=== PATIENT | female | born 1945 | race Caucasian/White ===

== ENCOUNTER 2021-10-16 17:50 | Observation (INO) ==
--- NOTE | 2021-10-16 19:42 | Emergency Department Note ---
History of Present Illness General Chief complaint: Weakness Stated complaint: EAR PAIN INTO HEAD Time Seen by Provider: 10/16/21 18:54 History of Present Illness Maximum Pain Intensity: 5 Patient is a 76-year-old female with past medical history significant for hypertension who presents the emergency department accompanied by her daughter for evaluation of weakness over the last 4 days. Patient notes that her primary care provider diagnosed her with hypertension. She was placed on lisinopril 40 mg daily. She took this for about 6 weeks, but did not like the way the medication made her feel. She states she "felt like she wasn't a person." She stopped the medication about 2 weeks ago, and felt great. She was gardening and painting until about 4 days ago. She states that she was seated in the recliner, and was so weak that she could not get out without help from her husba nd. She has been cold and shaky and had no appetite. She was weak and fell getting out of bed a couple of mornings ago. She did not injure herself when she fell. She has also noticed some discomfort at the left ear that radiates toward the top of her head. No skin rashes. She denies any lightheadedness or dizziness. No vision changes. No chest pain no palpitations no shortness of breath. No abdominal pain, no nausea, no vomiting, no urinary symptoms or changes in her stool habits. She did not talk to her primary care provider before stopping the lisinopril. Home Medications Medication Instructions Recorded Confirmed Type lisinopril 40 mg tablet 40 mg PO DAILY #90 tab 08/31/21 10/16/21 Rx Allergies Allergy/AdvReac Type Severity Reaction Status Date / Time No Known Allergies Allergy Verified 10/16/21 20:32 Past Med/Surg History Medical History Bone/cartilage disorder HTN (hypertension), benign Mild malnutrition Vitamin D deficiency Surgical History H/O tubal ligation Hx of breast lump removal Family History Mother Diabetes Father Hypertension Myocardial infarction Denies family history of Ovarian cancer Prostate cancer Breast cancer Colorectal cancer Social History (Reviewed 10/16/21 @ 19:41 by Dann Mahmood Smoking Status: Never smoker Second Hand Exposure: No; Hx Alcohol Use: No (social and rare ) Hx Substance Use: No marital status: Current Living Situation: Spouse current occupational status: retired Feels Safe at Home: Yes caffeine: Yes (coffee) Dental Care, Regularly: Yes Physical Activity Frequency: Daily Physical Activity Frequency Comment: walking 3-4 miles daily. Seatbelt Use: always Sunscreen Use: No Review of Systems A total of 10 systems reviewed and were otherwise negative Physical Exam Vital Signs Vital Signs - 24 hr 10/16/21 17:55 10/16/21 19:30 10/16/21 21:00 Temperature 36.4 C L Temperature Source Temporal Artery Scan Pulse Rate 94 H 89 Pulse Rate [Apical] 89 77 Respiratory Rate 18 20 18 Blood Pressure 190/77 H Blood Pressure [Right Arm] 182/99 H 137/93 Blood Pressure Mean 114 Blood Pressure Mean [Right Arm] 126 107 Pulse Oximetry 96 97 98 Oxygen Delivery Method Room Air Room Air Sepsis Recent Fever Within 48 Hours No Sepsis New/Unexplained Change in Mental Status No Sepsis Action Taken by Nursing No Action Required Pulse Oximetry Post Tiitration 97 CONSTITUTIONAL: Well-appearing 76-year-old female who is awake and alert and laying on the gurney. EYES: Pupils equal, round, reactive to light and accommodation. EOMs intact without nystagmus. Sclera are anicteric. ENT: Tympanic membranes intact, with normal landmarks. External canals are clear. Oral and nasopharynx are clear. Mucous membranes are moist, no lesions, tongue and gums appear normal. No abnormalities of the left external ear structure or canal. No pain swelling or erythema over the mastoid. No rashes noted. CARDIOVASCULAR: Regular rate and rhythm, with normal S1 and S2, no murmur or gallop or rub is heard. Peripheral pulses easy to palpable. RESPIRATORY: Breath sounds equal and clear to auscultation without wheezes, rales, or rhonchi heard. Full and equal chest expansion without accessory muscle use or retractions. GI: Bowel sounds are present. Abdomen is soft, nontender, nondistended. No or ganomegaly. No pulsatile masses. No guarding or rebound. MUSCULOSKELETAL: Full range of motion of extremities x 4 with good strength. No cyanosis, edema, joint tenderness or swelling. No deformity. INTEGUMENTARY: No lesions or rash, normal skin turgor. NEUROLOGICAL: Alert, oriented, and cooperative. Cranial nerves 2 through 12 sensation and strength grossly intact. Upper and lower extremity DTRs are equal and symmetrical bilaterally. Negative seated pronator drift. [id number] is intact. LYMPH: No lymphadenopathy. Course Course The patient was seen and assessed as above. She presents the emergency departm ent for evaluation of generalized weakness, she does also endorse some left- sided ear pain and a headache. She was noted to be quite hypertensive in triage. She was placed in room D6. She was seen and evaluated by myself. EKG was performed and is as noted below. Chest x-ray and head CT were ordered. CBC with differential, CMP, troponin and urinalysis were obtained. She was observed on the compliance monitor. Laboratory studies note a leukopenia, white count 3900. She is not anemic. Thrombocytopenia noted with a platelet count of 90,000. Sodium low at 129, potassium 3.8, chloride 95, carbon oxide 24, BUN and creatinine elevated from baseline at 29 and 1.5 respectively. She has slight elevation of her AST and ALT at 84 and 68 respectively. High-sensitivity troponin x1 is slightly e levated at 15.9. Urine microscopy is a contaminated sample was greater than 30 epithelial cells, leukocyte esterase and WBCs noted, no bacteria. A urine culture is pending. Head CT was negative for any acute intracranial process. Chest x-ray notes cardiomegaly with no active disease. EKG is without acute ischemic changes. Blood pressure remained elevated in the emergency department, in the [id number] over 90s. Cardiac monitoring: An order was placed for continuous cardiac monitoring. The monitor shows a normal sinus rhythm in the 80s. Laboratory and diagnostic imaging studies were reviewed with attending physician, and discussed with the patient and her daughter. She has multiple d iagnostic testing abnormalities that require further work-up in the hospital, and is agreeable. [facility] Please refer to their H&P and admission orders for further information. Medical Decision Making Differential Diagnosis Differential diagnoses included : infection, dehydration, metabolic abnormality, hypo/hyperglycemia, electrolyte disturbance, anemia, hypoxia, cardiac sources, intracerebral event, toxicologic, neurologic, as well as other pathologies. Medical Records Attestation: I reviewed the patient's medical records. Home Medications Current Medication List: was personally reviewed by me Laboratory Data Attestation: I reviewed the patient's lab results. Result diagrams: 10/16/21 19:07 10/16/21 19:07 Lab Results 10/16/21 10/16/21 10/16/21 Range/Units 19:07 19:07 20:02 WBC 3.94 L (4.8-10.8) K/uL RBC 4.65 (4.2-5.4) M/uL Hgb 14.3 (12.0-16.0) g/dL Hct 40.6 (37-47) % MCV 87.3 (80-100) fL MCH 30.8 (25-34) pg MCHC 35.2 (32-36) g/dL RDW Std Deviation 44.7 (36.4-46.3) fL RDW Coeff of Kalina 13.9 (11.5-14.5) % Plt Count 90 L (130-400) K/uL MPV 11.4 H (7.4-10.4) fL Immature Gran % (Auto) 0.8 % Neut % (Auto) 70.7 % Lymph % (Auto) 16.0 % Ector % (Auto) 11.4 % Eos % (Auto) 0.3 % Baso % (Auto) 0.8 % Neut # (Auto) 2.79 (1.4-6.5) K/uL Lymph # (Auto) 0.63 L (1.2-3.4) K/uL Ector # (Auto) 0.45 (0.11-0.59) K/uL Eos # (Auto) 0.01 (0-0.5) K/uL Baso # (Auto) 0.03 (0-0.2) K/uL Immature Gran # (Auto) 0.03 H (0.00-0.02) K/uL Platelet Estimate Decreased L (Normal) RBC Morphology Unremarkable Sodium 129 L (136-145) mmol/L Potassium 3.8 (3.5-5.1) mmol/L Chloride 95 L (98-107) mmol/L Carbon Dioxide 24 (21-32) mmol/L Anion Gap 10 (3-11) BUN 29 H (6-23) mg/dl Creatinine 1.53 H (0.6-1.2) mg/dl Est Cr Clr Drug Dosing 27.5 ml/min Est GFR ( Amer) 37.4 ml/min Est GFR (Non-Af Amer) 32.2 ml/min BUN/Creatinine Ratio 19.0 (10-20) Glucose 106 H (70-99(Fasting)) mg/dl Calcium 8.8 (8.5-10.1) mg/dl Total Bilirubin 0.6 (0.2-1.0) mg/dl AST 84 H (13-39) U/L ALT 68 H (7-52) U/L Alkaline Phosphatase 85 (34-104) U/L Troponin I High Sens 15.9 H (0-14) pg/ml Total Protein 7.2 (6.0-8.3) gm/dl Albumin 4.0 (3.4-5.0) gm/dl Globulin 3.2 (2.5-4.0) gm/dl Albumin/Globulin Ratio 1.3 (0.9-2) Urine Color Urine Appearance (Clear) Urine pH (4.5-7.5) Ur Specific [place] (1.000-1.030) Urine Protein (Negative) Urine Glucose (UA) (Negative) Urine Ketones (Negative) Urine Blood (Negative) Urine Nitrite (Negative) Urine Bilirubin (Negative) Urine Urobilinogen (Negative) Ur Leukocyte Esterase (Negative) Urine WBC (Auto) (0-5) /hpf Urine RBC (Auto) (0-4) /hpf U Hyaline Cast (Auto) (0-5) /lpf U Epithel Cells (Auto) (0-5) /lpf Urine Bacteria (Auto) (Negative) SARS-CoV-2, RNA, NAAT NEGATIVE (NEGATIVE) 10/16/21 Range/Units 20:13 WBC (4.8-10.8) K/uL RBC (4.2-5.4) M/uL Hgb (12.0-16.0) g/dL Hct (37-47) % MCV (80-100) fL MCH (25-34) pg MCHC (32-36) g/dL RDW Std Deviation (36.4-46.3) fL RDW Coeff of Kalina (11.5-14.5) % Plt Count (130-400) K/uL MPV (7.4-10.4) fL Immature Gran % (Auto) % Neut % (Auto) % Lymph % (Auto) % Ector % (Auto) % Eos % (Auto) % Baso % (Auto) % Neut # (Auto) (1.4-6.5) K/uL Lymph # (Auto) (1.2-3.4) K/uL Ector # (Auto) (0.11-0.59) K/uL Eos # (Auto) (0-0.5) K/uL Baso # (Auto) (0-0.2) K/uL Immature Gran # (Auto) (0.00-0.02) K/uL Platelet Estimate (Normal) RBC Morphology Sodium (136-145) mmol/L Potassium (3.5-5.1) mmol/L Chloride (98-107) mmol/L Carbon Dioxide (21-32) mmol/L Anion Gap (3-11) BUN (6-23) mg/dl Creatinine (0.6-1.2) mg/dl Est Cr Clr Drug Dosing ml/min Est GFR ( Amer) ml/min Est GFR (Non-Af Amer) ml/min BUN/Creatinine Ratio (10-20) Glucose (70-99(Fasting)) mg/dl Calcium (8.5-10.1) mg/dl Total Bilirubin (0.2-1.0) mg/dl AST (13-39) U/L ALT (7-52) U/L Alkaline Phosphatase (34-104) U/L Troponin I High Sens (0-14) pg/ml Total Protein (6.0-8.3) gm/dl Albumin (3.4-5.0) gm/dl Globulin (2.5-4.0) gm/dl Albumin/Globulin Ratio (0.9-2) Urine Color Yellow Urine Appearance Clear (Clear) Urine pH 6.0 (4.5-7.5) Ur Specific [place] 1.012 (1.000-1.030) Urine Protein 2+ H (Negative) Urine Glucose (UA) Negative (Negative) Urine Ketones Negative (Negative) Urine Blood Trace H (Negative) Urine Nitrite Negative (Negative) Urine Bilirubin Negative (Negative) Urine Urobilinogen Negative (Negative) Ur Leukocyte Esterase 1+ H (Negative) Urine WBC (Auto) >30 H (0-5) /hpf Urine RBC (Auto) 0-4 (0-4) /hpf U Hyaline Cast (Auto) 1-5 (0-5) /lpf U Epithel Cells (Auto) >30 H (0-5) /lpf Urine Bacteria (Auto) Negative (Negative) SARS-CoV-2, RNA, NAAT (NEGATIVE) Imaging Data Attestation: I personally reviewed and interpreted this imaging study as follows: Radiologist's Impression: Chest X-Ray 10/16/21 19:10 SINGLE VIEW CHEST CLINICAL HISTORY: Hypertension. FINDINGS: An AP, portable, upright chest radiograph is obtained. No prior studies are available for comparison at the time of dictation. The heart is enlarged. The pulmonary vasculature is noncongested. There is mild bibasilar scarring/atelectasis. The lungs and pleural spaces are otherwise clear. No pneumothorax is seen. The skeletal structures are osteopenic. The bony thorax is grossly intact. IMPRESSION: Cardiomegaly with no active disease in the chest. ACT 112: Negative or not required by law. Electronically signed by: Geo Childs M.D. 10/16/2021 8:[address] 10/16/21 19:10 CT SCAN OF THE BRAIN WITHOUT IV CONTRAST CLINICAL HISTORY: Hypertension. COMPARISON STUDY: No priors. TECHNIQUE: Unenhanced axial CT scan of the brain is performed from the vertex to the skull base. A dose lowering technique was utilized adhering to the principles of ALARA. CT DOSE: 537.48 mGy.cm FINDINGS: Brain parenchyma: There is age-related involutional change noting mild subcortical and periventricular microangiopathic disease. There is no hemorrhage, mass effect, or evidence of acute territorial ischemia by CT criteria. Roberts-white matter differentiation is preserved. No extra-axial fluid collection is seen. Ventricles, sulci, cisterns: Prominent secondary to involutional change. Intracranial vasculature: There is atherosclerotic calcification of the cavernous carotid and vertebral arteries. Calvarium: Unremarkable. Sinuses and mastoids: The visualized paranasal sinuses are clear. The mastoid air cells are well pneumatized. Orbits: The bony orbits are grossly intact. IMPRESSION: There is no hemorrhage, mass effect, or evidence of acute territorial ischemia by CT criteria. ACT 112: Negative or not required by law. Electronically signed by: Geo Childs M.D. 10/16/2021 7:49 PM ECG Data Attestation: I personally reviewed and interpreted this ECG as follows: Indication: + weakness Rate (beats per minute): 92 Rhythm: + normal sinus ECG [place]: + Normal ECG ST segments: + Normal ST segments Comparison ECG Date: no prior available Blood Pressure Blood Pressure Findings: Elevated blood pressure Blood Pressure Disposition: further management by hospitalist MDM Narrative See ED Course. Impression & Plan Weakness, Hyponatremia, KALEB (acute kidney injury), Thrombocytopenia Discharge Plan Visit Data Chief Complaint: Weakness Stated Complaint: EAR PAIN INTO HEAD ED Provider: Yeyo Dupree ED Midlevel Provider: Dann Veliz Discharge Problem: Weakness, Hyponatremia, KALEB (acute kidney injury), Thrombocytopenia Patient Disposition: Being Evaluated by Hospitalist Forms Stand Alone Forms: My [facility] Prescriptions Prescriptions: No Action lisinopril 40 mg tablet 40 mg PO DAILY Qty: 90 RF: 1 Referrals Referrals: Christina Spann MD [Primary Care Provider] -
--- NOTE | 2021-10-16 19:51 | CT Scan Report ---
CT SCAN OF THE BRAIN WITHOUT IV CONTRAST CLINICAL HISTORY: Hypertension. COMPARISON STUDY: No priors. TECHNIQUE: Unenhanced axial CT scan of the brain is performed from the vertex to the skull base. A do se lowering technique was utilized adhering to the principles of ALARA. CT DOSE: 537.48 mGy.cm FINDINGS: Brain parenchyma: There is age-related involutional change noting mild subcortical and periventricula r microangiopathic disease. There is no hemorrhage, mass effect, or evidence of acute territorial isc hemia by CT criteria. Roberts-white matter differentiation is preserved. No extra-axial fluid collection is seen. Ventricles, sulci, cisterns: Prominent secondary to involutional change. Intracranial vasculature: There is atherosclerotic calcification of the cavernous carotid and vertebr al arteries. Calvarium: Unremarkable. Sinuses and mastoids: The visualized paranasal sinuses are clear. The mastoid air cells are well pneu matized. Orbits: The bony orbits are grossly intact. IMPRESSION: There is no hemorrhage, mass effect, or evidence of acute territorial ischemia by CT savanah gallardo. ACT 112: Negative or not required by law. Electronically signed by: Geo Childs M.D. 10/16/2021 7:49 PM
[2021-10-16 19:57] LABS: Hematocrit (blood only) 40.6 % (37-47); Hemoglobin 14.3 g/dL (12.0-16.0); Mean Corpuscular Hemoglobin 30.8 pg (25-34); Mean Corpuscular Hgb Conc 35.2 g/dL (32-36); Mean Corpuscular Volume 87.3 fL (80-100); RDW Coefficient of Variation 13.9 % (11.5-14.5); RDW Standard Deviation 44.7 fL (36.4-46.3); Red Blood Count 4.65 M/uL (4.2-5.4); White Blood Count 3.94 K/uL (4.8-10.8)
[2021-10-16 20:00] LABS: Basophils # (auto) 0.03 K/uL (0-0.2); Basophils % (auto) 0.8 %; Eosinophils # (auto) 0.01 K/uL (0-0.5); Eosinophils % (auto) 0.3 %; Immature Granulocytes # (auto) 0.03 K/uL (0.00-0.02); Immature Granulocytes % (auto) 0.8 %; Lymphocytes # (auto) 0.63 K/uL (1.2-3.4); Mean Platelet Volume 11.4 fL (7.4-10.4); Monocytes # (auto) 0.45 K/uL (0.11-0.59); Monocytes % (auto) 11.4 %; Neutrophils # (auto) 2.79 K/uL (1.4-6.5); Neutrophils % (auto) 70.7 %; Platelet Count 90 K/uL (130-400); Platelet Estimate Decreased (Normal); RBC Morphology Unremarkable
[2021-10-16 20:03] LABS: Albumin Globulin Ratio 1.3 (0.9-2); Bilirubin,Total 0.6 mg/dl (0.2-1.0); Calcium 8.8 mg/dl (8.5-10.1); Creatinine Clr Calc Pharmacy 27.5 ml/min; Est GFR (African American) 37.4 ml/min; Est GFR (Non-African American) 32.2 ml/min; Globulin 3.2 gm/dl (2.5-4.0); Potassium 3.8 mmol/L (3.5-5.1); Total Protein 7.2 gm/dl (6.0-8.3)
[2021-10-16 20:05] LABS: Troponin I High Sensitivity 15.9 pg/ml (0-14)
[2021-10-16 20:33] LABS: Appearance Urine Clear (Clear); Bacteria Urine Automated Negative (Negative); Bilirubin Urine Negative (Negative); Blood Urine Trace (Negative); Color Urine Yellow; Epithelial Cell Urine Auto >30 /lpf (0-5); Glucose Urine UA Negative (Negative); Ketones Urine Negative (Negative); Leukocyte Esterase Urine 1+ (Negative); Nitrite Urine Negative (Negative); Protein Urine 2+ (Negative); RBC Urine Automated 0-4 /hpf (0-4); Specific Gravity Urine 1.012 (1.000-1.030); Urobilinogen Urine Negative (Negative); WBC Urine Automated >30 /hpf (0-5)
--- NOTE | 2021-10-16 20:55 | XRay Report ---
SINGLE VIEW CHEST CLINICAL HISTORY: Hypertension. FINDINGS: An AP, portable, upright chest radiograph is obtained. No prior studies are available for c omparison at the time of dictation. The heart is enlarged. The pulmonary vasculature is noncongested . There is mild bibasilar scarring/atelectasis. The lungs and pleural spaces are otherwise clear. No pneumothorax is seen. The skeletal structures are osteopenic. The bony thorax is grossly intact. IMPRESSION: Cardiomegaly with no active disease in the chest. ACT 112: Negative or not required by law. Electronically signed by: Geo Childs M.D. 10/16/2021 8:54 PM
[2021-10-16] MEDS ORDERED: LACTATED RINGER'S 1,000 ML IV ONE (20:56)
[2021-10-16] MEDS ORDERED: DOXYCYCLINE HYCLATE 100 MG in DEXTROSE 5% 100 ML IV STA (21:36)
[2021-10-16 22:12] LABS: Lyme Ab IgG w/WB Rflx Negative (Negative); Lyme Ab IgM w/WB Rflx Negative (Negative)
--- NOTE | 2021-10-16 22:13 | History & Physical Report ---
Date of Service October 16, 2021 Assessment & Plan (1) Leukopenia: Plan: Leukopenia with thrombocytopenia in the setting of normal HGB/HCT with elevated liver enzymes DDX: Tick borne disease vs. bacterial/viral infection vs. ocnological vs. other - Likely tickborne disease- send anaplasmosis and lyme - start on Doxycycline 100mg IV now and then q12 - Follow WBC and Platelet count if no improvement in symptoms/labs within 24-48 hours send peripheral smear - Follow HGB as likely some hemoconcentration with hypovolemia (2) Thrombocytopenia: Plan: As above (3) KALEB (acute kidney injury): Plan: Baseline PROCESS SAFETY SPECIALIST 0.8- CATHY III - Replete with LR overnight at 100ml/hour - follow renal function - adjust or change lovenox for DVT prophy if needed- this should trend downward - Urine protein 2+ with trace blood - Hold WILLIAM inhibitor (4) Hyponatremia: Plan: As above likely related to decrease solute intake with continued water intake but both have been low serum and urine osmo pending; urine sodium pending (5) HTN (hypertension), benign: Plan: Previously started on Lisinopril in Jun 26 - has had low blood pressures and self stopped - 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 or 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 Patient comes in to the EMD today for 3-4 day history of fatigue and general weakness. Patient states that she started feeling like this approx towards the end of last week. This was acute onset in nature. It is associated with decrease in appetite and chills. She has not taken any medication for this. Patient originally thought this was rebound from her stopping her blood pressure medications. She was previously on Lisinopril 40mg daily for SBP that she reports were up in the 190s back in Jun, that was associated with headaches. She was originally started on 20mg at that time and her headaches improved, but remained elevated. Following the increase to 40mg daily, she noted that on home checks she would be 120 or lower in the 90s systolic. She also fell dizzy and "spacy" so she stopped this about 2 weeks ago. In the EMD the patient had routine labs performed and had a head CT scan performed. Her head CT was negative for acute process. Her labs were remarkable for neutropenia, thrombocytopenia with normal HGB/HCT; her BMP was notable for hyponatremia, elevated LFTs with normal biliary pattern and KALEB. She is up to date with her mammograms, Cologuard screening done last year. Patient states that she was out gardening last week by the [employer] as well as [employer]. She also has dogs which she has seen ticks on and they sleep in bed with her. She has had decrease appetite and decrease oral fluid intake. HScTNI was mildly elevated at 15 on arrival with no complaints of chest pain. Overall labs and symptoms appear likely to be tick borne disease. Will send tick borne labs for anaplasmosis and lyme disease. Will start on Doxycycline and LR overnight. COVID test on admission is: NEGATIVE Allergies Allergy/AdvReac Type Severity Reaction Status Date / Time No Known Allergies Allergy Verified 10/16/21 20:32 Home Medications Medication Instructions Recorded Confirmed Type lisinopril 40 mg tablet 40 mg PO DAILY #90 tab 08/31/21 10/16/21 Rx Past Med/Surg History Medical History Bone/cartilage disorder Breast cancer HTN (hypertension), benign Mild malnutrition Vitamin D deficiency Surgical History H/O tubal ligation Hx of breast lump removal Family History Mother Diabetes Father Hypertension Myocardial infarction Denies family history of Ovarian cancer Prostate cancer Breast cancer Colorectal cancer Social History Smoking Status: Never smoker Second Hand Exposure: No; Hx Alcohol Use: No (social and rare ) Hx Substance Use: No Preferred Language: Upper Sorbian Communication Ability: Effective Shiftman Required: No Beliefs That Will Affect Care: None marital status: Current Living Situation: Spouse current occupational status: retired Feels Safe at Home: Yes Safety Concerns: Feels Safe At This Time caffeine: Yes (coffee) Dental Care, Regularly: Yes Physical Activity Frequency: Daily Physical Activity Frequency Comment: walking 3-4 miles daily. Seatbelt Use: always Sunscreen Use: No Assistive Devices: None Review of Systems Review of Systems: REVIEW OF SYSTEMS: Constitutional: (+) chills, No fever, Eyes: No diplopia, no worsening or blurred vision ENT: normal hearing, no trouble swallowing Respiratory: No cough, sputum, dyspnea at rest or on exertion Cardiovascular: No chest pain, tightness or palpitations Abdomen: (+) loss of appetite, No pain, nausea, vomiting, diarrhea or constipation Musculoskeletal: (+) joint pain, calf pain, swelling Neurologic: (+) generalized weakness, NO numbness/tingling, or balance problems Psychiatric: No anxiety or depression Skin: No rash or itch Physical Exam Physical Exam: PHYSICAL EXAM: General: awake, alert, no apparent distress Head: Normocephalic, atraumatic ENT: PERRLA, EOMI, no pharyngeal exudate, mucous membranes dry Neuro: AAO x 3, speech clear and appropriate, strength intact bilaterally 5/5, sensation intact and equal all extremities and dermatomes, no pronator drift Chest: equal rise and fall of the chest, no accessory muscle use, no heaves or thrills, Clear to auscultation, on room air, Cardiac: Regular rate and rhythm, telemetry reviewed, skin warm dry, cap refill <3 seconds, peripheral pulses +2 no JVD, no murmur, no JVD, no edema GI: NABS x 4 quadrants, soft, nontender to palpation, no rebound, guarding or tenderness : Spontaneously voiding, no pain, no CVA tenderness, Extremities: Normal inspection, no peripheral edema or erythema, calfs nontender to palpation Psych: Normal mood and affect Skin: varicosities, no rash or erythema Results & Data Results & Data ([facility]) Vital Signs (Past 12 Hours) Vital Signs Temp Pulse Pulse Resp BP BP Pulse Ox 10/16/21 21:00 77 18 137/93 98 10/16/21 19:30 89 89 20 182/99 H 97 10/16/21 17:55 36.4 C L 94 H 18 190/77 H 96 Laboratory Results Abnormal lab results 10/16/21 10/16/21 10/16/21 Range/Units 19:07 19:07 20:13 WBC 3.94 L (4.8-10.8) K/uL Plt Count 90 L (130-400) K/uL MPV 11.4 H (7.4-10.4) fL Lymph # (Auto) 0.63 L (1.2-3.4) K/uL Immature Gran # (Auto) 0.03 H (0.00-0.02) K/uL Platelet Estimate Decreased L (Normal) Sodium 129 L (136-145) mmol/L Chloride 95 L (98-107) mmol/L BUN 29 H (6-23) mg/dl Creatinine 1.53 H (0.6-1.2) mg/dl Glucose 106 H (70-99(Fasting)) mg/dl AST 84 H (13-39) U/L ALT 68 H (7-52) U/L Troponin I High Sens 15.9 H (0-14) pg/ml C-Reactive Protein (0-0.5) mg/dl Urine Protein 2+ H (Negative) Urine Blood Trace H (Negative) Ur Leukocyte Esterase 1+ H (Negative) Urine WBC (Auto) >30 H (0-5) /hpf U Epithel Cells (Auto) >30 H (0-5) /lpf 10/16/21 10/16/21 Range/Units 21:20 21:20 WBC (4.8-10.8) K/uL Plt Count (130-400) K/uL MPV (7.4-10.4) fL Lymph # (Auto) (1.2-3.4) K/uL Immature Gran # (Auto) (0.00-0.02) K/uL Platelet Estimate (Normal) Sodium (136-145) mmol/L Chloride (98-107) mmol/L BUN (6-23) mg/dl Creatinine (0.6-1.2) mg/dl Glucose (70-99(Fasting)) mg/dl AST (13-39) U/L ALT (7-52) U/L Troponin I High Sens 17.6 H (0-14) pg/ml C-Reactive Protein 12.02 H (0-0.5) mg/dl Urine Protein (Negative) Urine Blood (Negative) Ur Leukocyte Esterase (Negative) Urine WBC (Auto) (0-5) /hpf U Epithel Cells (Auto) (0-5) /lpf Diagnostic Findings Chest X-Ray 10/16/21 19:10 SINGLE VIEW CHEST CLINICAL HISTORY: Hypertension. FINDINGS: An AP, portable, upright chest radiograph is obtained. No prior studies are available for comparison at the time of dictation. The heart is enlarged. The pulmonary vasculature is noncongested. There is mild bibasilar scarring/atelectasis. The lungs and pleural spaces are otherwise clear. No p neumothorax is seen. The skeletal structures are osteopenic. The bony thorax is grossly intact. IMPRESSION: Cardiomegaly with no active disease in the chest. ACT 112: Negative or not required by law. Electronically signed by: Geo Childs M.D. 10/16/2021 8:[address] 10/16/21 19:10 CT SCAN OF THE BRAIN WITHOUT IV CONTRAST CLINICAL HISTORY: Hypertension. COMPARISON STUDY: No priors. TECHNIQUE: Unenhanced axial CT scan of the brain is performed from the vertex to the skull base. A dose lowering technique was utilized adhering to the principles of ALARA. CT DOSE: 537.48 mGy.cm FINDINGS: Brain parenchyma: There is age-related involutional change noting mild subcortical and periventricular microangiopathic disease. There is no hemorrhage, mass effect, or evidence of acute territorial ischemia by CT criteria. Roberts-white matter differentiation is preserved. No extra-axial fluid collection is seen. Ventricles, sulci, cisterns: Prominent secondary to involutional change. Intracranial vasculature: There is atherosclerotic calcification of the cavernous carotid and vertebral arteries. Calvarium: Unremarkable. Sinuses and mastoids: The visualized paranasal sinuses are clear. The mastoid air cells are well pneumatized. Orbits: The bony orbits are grossly intact. IMPRESSION: There is no hemorrhage, mass effect, or evidence of acute territorial ischemia by CT criteria. ACT 112: Negative or not required by law. Electronically signed by: Geo Childs M.D. 10/16/2021 7:49 PM Medications Administered Home Medications lisinopril 40 mg tablet 40 mg PO DAILY #90 tab 08/31/21 [Rx Confirmed 10/16/21] Active Medications Lactated Ringer's (Lr) 1,000 mls @ 100 mls/hr IV .Q10H ONE Stop: 10/17/21 06:55 Doxycycline Hyclate 100 mg/ (Dextrose) 110 mls @ 50 mls/hr IV NOW STA Stop: 10/16/21 23:47 ECG Additional Comments: Normal sinus rhythm Inferior infarct , age undetermined Abnormal ECG No previous ECGs available Code Status & VTE Plan Code Status CODE: FULL VTE: SCDs, Lovenox 40mg sub q daily VTE Prophylaxis Plan VTE Prophylaxis will be ordered: Yes Supervising Physician Co-Signing Physician Notes Patient seen and examined, chart reviewed, case discussed with PEPPER Hendrix and I agree with the assessment and plan as above. Patient with generalized illness. Labs with hyponatremia, leukopenia, thrombocytopenia and mild elevation of AST/ALT as well as troponin ?Viral illness vs tick borne illness Unremarkable exam - patient AA&O, NAD Neck supple slightly dry MM +S1/S2, regular, no m/r/g Lungs CTA Abd soft, NT/ND Ext warm, well perfused Labs and images reviewed Assessment/Plan -Monitor labs -Empiric Doxycycline - awaiting tick borne illness results -Gentle IVF for correction of hypovolemic hyponatremia -Remainder as above PG Care Time/CCT Total # of Minutes Spent Total Time Spent with Patient: Total time spent is greater than 50% in coordination of care (as documented) at patient's floor/unit and/or counseling patient: Coding Level of Care Code 22201 Initial Inpt Care Lvl 3 Diagnoses Leukopenia D72.819 Thrombocytopenia D69.6 KALEB (acute kidney injury) N17.9 Hyponatremia E87.1 HTN (hypertension), benign I10 History of breast cancer Z85.3 Elevated troponin I level R77.8
[2021-10-16] MEDS ORDERED: ENOXAPARIN INJ 30 MG/0.3 ML SYR SQ SCH (22:35)
[2021-10-17 03:55] LABS: Hematocrit (blood only) 39.5 % (37-47); Hemoglobin 13.2 g/dL (12.0-16.0); Mean Corpuscular Hgb Conc 33.4 g/dL (32-36); Mean Corpuscular Volume 86.8 fL (80-100); RDW Standard Deviation 44.2 fL (36.4-46.3); Red Blood Count 4.55 M/uL (4.2-5.4); White Blood Count 3.62 K/uL (4.8-10.8)
[2021-10-17 03:58] LABS: Mean Platelet Volume 11.7 fL (7.4-10.4); Platelet Count 87 K/uL (130-400)
[2021-10-17 04:16] LABS: Basophils # (auto) 0.02 K/uL (0-0.2); Basophils % (auto) 0.6 %; Eosinophils # (auto) 0.01 K/uL (0-0.5); Eosinophils % (auto) 0.3 %; Immature Granulocytes # (auto) 0.01 K/uL (0.00-0.02); Immature Granulocytes % (auto) 0.3 %; Lymphocytes % (auto) 24.9 %; Monocytes # (auto) 0.54 K/uL (0.11-0.59); Monocytes % (auto) 14.9 %; Neutrophils # (auto) 2.14 K/uL (1.4-6.5)
[2021-10-17 04:23] LABS: BUN Creatinine Ratio 18.4 (10-20); Calcium 8.7 mg/dl (8.5-10.1); Creatinine Clr Calc Pharmacy 33.6 ml/min; Est GFR (African American) 47.7 ml/min; Est GFR (Non-African American) 41.2 ml/min; Magnesium 1.8 mg/dl (1.7-2.4); Potassium 3.8 mmol/L (3.5-5.1)
[2021-10-17 04:24] LABS: Troponin I High Sensitivity 16.4 pg/ml (0-14)
[2021-10-17 08:28] LABS: Albumin Level 3.3 gm/dl (3.4-5.0); Bilirubin,Total 0.5 mg/dl (0.2-1.0); Total Protein 6.1 gm/dl (6.0-8.3)
--- NOTE | 2021-10-17 10:36 | Hospitalist Progress Note ---
Date of Service October 17, 2021 Assessment & Plan (1) Weakness: Plan: Patient is a 76 year old female with PMH of HTN and breast cancer in remission presenting with 4 days of weakness and headache with decreased PO intake. Weakness -hyponatremia vs tick born illness vs bacteremia vs viral infection -CT head without evidence of ischemia, hemorrhage or masses -PT/OT eval Leukopenia and thrombocytopenia -tick born illness vs bacteremia vs viral infection -WBC 3.62, Plt 87, -with mildly elevated procalcitonin at 0.67 -anaplasma, babesia, lyme screen negative; confirmatory anaplasma and babesia pending -covid negative -peripheral smear: decreased numbers of lymphocytes with scattered reactive lymphocytes, increased band forms. Blasts and schistocytes not seen, no inclusions of anaplasmosis or ehrlichiosis -blood and urine culture pending, drawn 10/17 AM after initiation of doxycycline 10/16 PM -started on Doxycycline 100mg IV in ED, continue KALEB -dehydration vs hypertensive emergency vs tick borne, likely dehydration with Cr improving with fluids -baseline at 0.81, 1.53 on admission ->1.25 on 10/17 -2+ protein on UA -on LR 110mg/hr Hypertension -on admission, BP 190/77 with headache -currently untreated -was trialed on lisinopril 40mg in July but patient stopped med without consulting PCP after 6 weeks due to lightheadedness -consider re-trial of antihypertensive at lower dose on discharge Hyponatremia, resolving -hypovolemic hyponatremia, resolving with LR 110mg/hr -poor PO intake prior to admission, low osmolality at 277 -129 on admission -> 134 on 10/17 Transaminitis, resolving -possibly due to tick born illness -AST 84 on admission -> 47 on 10/17, ALT 68 -> 49 on 10/17 Elevated troponin -no chest pain or SOB -high sensitivity troponin on admission 17.6 -> 16.4 on 10/17 DVT prophylaxis: lovenox FEN/GI: regular diet Code Status: Full code (2) Leukopenia: (3) Thrombocytopenia: (4) Hyponatremia: (5) KALEB (acute kidney injury): (6) HTN (hypertension), benign: (7) Elevated troponin I level: Admission and Anticipated Discharge Date Admission Date: October 16, 2021 Supervising Physician Co-Signing Physician Notes Attending attestation Pt seen and examined in concert with [facility]. Dr. Bebo Lamar. In agreement with the documented findings as noted in the resident documentation with any exceptions or additions as noted here. Pt reports continued general malaise, "not feeling myself" but reports no acute changes/complaints. VS reviewed. On examination, S1/S2 nl RRR no MCG. CTAB. Abd NT/ND BS+ve Weakness/malaise - multiple potential causes as below. PT/OT evaluation as noted. Leukopenia and thrombocytopenia - trend CBC, follow up confirmatory testing for tick borne disease and cultures. Continue doxycycline for empiric coverage. KALEB - improved with IVF, continue LR and trend BMP daily Elevated BP in the setting of HTN diagnosis - holding medications presently but would consider losartan 25mg on discharge vs. restart lisinopril @ 20mg Hyponatremia - likely hypovolemic - improving on IVF, trend BMP Else see resident documentation as noted. Subjective Patient still feeling weak and fatigued today. Denies headache, chest pain, SOB, cough, abdominal pain, diarrhea, rash, or chills. States that she had a day of feeling chills in the last week that resolved spontaneously. No recent sick contacts but patients states that she had similar symptoms in July and her son had similar symptoms early 2021 lasting 2 months with hospitalization without clear diagnosis. Patient states she had poor PO intake for the last week while feeling weak. Review of Systems Constitutional: fatigue and weakness Respiratory: no cough or SOB Cardiovascular: Additional Comments: no chest pain or palpitations Gastrointestinal: no abdominal pain, no diarrhea or constipation, no visible blood in stool Genitourinary: no dysuria Integumentary: no rash Physical Exam Constitutional: resting comfortably in bed, no acute distress Respiratory: normal respiratory effort, clear to auscultation bilaterally Cardiovascular: RRR no MRG appreciated, no LE edema Gastrointestinal (Abdomen): soft, nontender, active bowel sounds Neurologic: A&Ox3 Results & Data Results & Data ([facility]) Vital Signs (Past 12 Hours) Vital Signs Pulse Pulse Resp BP BP Pulse Ox 10/17/21 10:03 69 22 150/75 H 98 10/17/21 04:32 82 10/17/21 02:20 64 18 155/55 H 95 10/17/21 02:10 72 21 96 10/17/21 02:00 67 17 93 10/17/21 01:50 68 20 97 06/14/22 01:40 70 22 93 10/17/21 01:30 75 18 96 10/17/21 01:20 65 19 94 10/17/21 01:15 67 20 94 10/17/21 01:00 90 22 95 10/17/21 00:45 86 19 96 10/17/21 00:30 70 21 95 10/17/21 00:15 71 18 95 10/17/21 00:00 75 19 99 10/16/21 23:45 72 23 97 10/16/21 23:30 69 17 96 10/16/21 23:19 22 98 10/16/21 23:01 86 19 158/81 H 97 10/16/21 23:00 84 19 10/16/21 22:45 86 21 96
[2021-10-17] MEDS: LACTATED RINGER'S 1,000 ML IV SCH (11:32)
[2021-10-17] MEDS: DOXYCYCLINE HYCLATE 100 MG in DEXTROSE 5% 100 ML IV SCH ×2 (11:32→22:34)
--- NOTE | 2021-10-17 19:02 | Electrocardiogram Report ---
Test Reason : Blood Pressure : / mmHG Vent. Rate : 092 BPM Atrial Rate : 092 BPM P-R Int : 152 ms QRS Dur : 090 ms QT Int : 346 ms P-R-T Axes : 045 -13 -01 degrees QTc Int : 427 ms Normal sinus rhythm possible Inferior infarct , age undetermined Abnormal ECG No previous ECGs available Confirmed by Rowdy Cordova ([id number]) on 10/17/2021 7:02:25 PM Referred By: REFERRED SELF Confirmed By:Redd Cordova
--- NOTE | 2021-10-17 21:00 | XCELERA ---
[id number]
[2021-10-17] MEDS ORDERED: ENOXAPARIN INJ 40 MG/0.4 ML SYR SQ SCH (23:00)
--- NOTE | 2021-10-18 06:51 | Discharge Summary ---
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 Patient comes in to the EMD today for 3-4 day history of fatigue and general weakness. Patient states that she started feeling like this approx towards the end of last week. This was acute onset in nature. It is associated with decrease in appetite and chills. She has not taken any medication for this. Patient originally thought this was rebound from her stopping her blood pressure medications. She was previously on Lisinopril 40mg daily for SBP that she reports were up in the 190s back in Jun, that was associated with headaches. She was originally started on 20mg at that time and her headaches improved, but remained elevated. Following the increase to 40mg daily, she noted that on home checks she would be 120 or lower in the 90s systolic. She also fell dizzy and "spacy" so she stopped this about 2 weeks ago. In the EMD the patient had routine labs performed and had a head CT scan performed. Her head CT was negative for acute process. Her labs were remarkable for neutropenia, thrombocytopenia with normal HGB/HCT; her BMP was notable for hyponatremia, elevated LFTs with normal biliary pattern and KALEB. She is up to date with her mammograms, Cologuard screening done last year. Patient states that she was out gardening last week by the [employer] as well as painting. She also has dogs which she has seen ticks on and they sleep in bed with her. She has had decrease appetite and decrease oral fluid intake. HScTNI was mildly elevated at 15 on arrival with no complaints of chest pain. Overall labs and symptoms appear likely to be tick borne disease. Will send tick borne labs for anaplasmosis and lyme disease. Will start on Doxycycline and LR overnight. COVID test on admission is: NEGATIVE Admission Exam Per Admitting Provider PHYSICAL EXAM: General: awake, alert, no apparent distress Head: Normocephalic, atraumatic ENT: PERRLA, EOMI, no pharyngeal exudate, mucous membranes dry Neuro: AAO x 3, speech clear and appropriate, strength intact bilaterally 5/5, sensation intact and equal all extremities and dermatomes, no pronator drift Chest: equal rise and fall of the chest, no accessory muscle use, no heaves or thrills, Clear to auscultation, on room air, Cardiac: Regular rate and rhythm, telemetry reviewed, skin warm dry, cap refill <3 seconds, peripheral pulses +2 no JVD, no murmur, no JVD, no edema GI: NABS x 4 quadrants, soft, nontender to palpation, no rebound, guarding or tenderness : Spontaneously voiding, no pain, no CVA tenderness, Extremities: Normal inspection, no peripheral edema or erythema, calfs nontender to palpation Psych: Normal mood and affect Skin: varicosities, no rash or erythema Principal Diagnosis Generalized Weakness Discharge Exam General: A&Ox3. NAD. Cooperative. HEENT: Atraumatic, normocephalic. Pulm: CTAB A&P. -wheezes, -rales, -rhonchi. Symmetrical chest rise. No increase work of breathing. No respiratory distress. Cardiac: RRR, -mrg. Radial pulses intact and symmetrical. No LE edema. Abdominal: soft, non-tender, non-distended, BS x 4 Skin: warm, dry, no rash Discharge Data Allergies Allergy/AdvReac Type Severity Reaction Status Date / Time No Known Allergies Allergy Verified 10/16/21 20:32 Consultations 10/16/21 20:31 ED Decision to Admit Stat Ordered Studies 10/16/21 19:10 CT head/brain wo con Stat Hospital Course (1) Weakness: Patient is a 76 year old female with PMH of HTN and breast cancer in remission presenting with 4 days of weakness and headache with decreased PO intake; admitted from 10/16 to 10/18. Weakness Multiple possible etiologies (as expanded upon below): dehydration/hyponatremia vs tick borne illness vs viral illness. - CT head without evidence of ischemia, hemorrhage or masses - PT/OT evaluated and determined that patient is strong enough for discharge home Leukopenia and thrombocytopenia, improving WBC 3.9 on admission and improved to 6.4 on 10/18. Plts 90 on admission and improved to 105 on 10/18. Suspect tick borne illness vs viral infection. - mildly elevated procalcitonin at 0.67 on admission but improved to 0.41 on 10/18 - anaplasma, babesia, lyme screen negative; confirmatory anaplasma and babesia PCR pending - covid negative - blood cx no growth after 24 hours - urine cx with group B beta strep and alpha strep, but patient denied urinary symptoms - started on Doxycycline 100mg IV BID on admission - - trend CBC as outpatient - per PCP Transaminitis, resolved AST 84 on admission -> 31 on 10/18, ALT 68 -> 31 on 10/18. Suspect dehydration vs tick borne illness. KALEB, resolving Cr 1.53 on admission, improved to 1.2 with IVFs. Suspect pre-renal injury in context of dehydration with possible contribution of acute illness as stated above. - counseled on maintaining adequate PO intake - f/u as outpatient - per PCP Hyponatremia, resolving Na 129 on admission, improved to 137 with IVFs. Suspect hypotonic hypovolemic hyponatremia due to dehydration. - counseled on PO intake as stated above Hypertension Initially hypertensive urgency with BP 190/77 on admission, with headache. - currently untreated; was trialed on lisinopril 40mg in July but patient stopped med without consulting PCP after 6 weeks due to lightheadedness - BPs improved immediately after admission and are largely 150s-160s/70s-80s while hospitalizated. Also with BP 132/75 on 10/18 - consider re-trial of antihypertensive at lower dose on discharge - per PCP - would trend kidney function as outpatient before deciding on anti- hypertensive Elevated troponin hsTroponin peaked at 17.6. No chest pain and EKG without ST/T changes. Suspect demand ischemia due to dehydration. Asymptomatic Bacteriuria Urine cx positive for group B beta strep and alpha strep (not enterococcus). Patient does not have any urinary symptoms. - will defer strep-specific treatment for now (especially considering that Doxycyline provides some coverage as well) (2) Leukopenia: (3) Thrombocytopenia: (4) Hyponatremia: (5) KALEB (acute kidney injury): (6) HTN (hypertension), benign: (7) Elevated troponin I level: Total Time Total Time Spent Total Time Spent (In Minutes): 30 minutes Discharge Plan Discharge Items Patient Disposition: Home - Self-Care Reason For Visit: FATIGUE; ILLNESS Discharge Diagnosis: Generalized Weakness Activity: Per Instructions section Non-emergency contact: Primary Care Provider Call non-emergency contact if: you have any medication questions, your symptoms worsen and you have a fever Follow-up/Referrals: Christina Spann MD [Primary Care Provider] - 10/25/21 11:30 am (please schedule f/u within 1 week of discharge) Diet: Regular Addtl Attending Provider Instructions: You were admitted to [facility] from 10/16 to 10/18 for worsening weakness, fatigue and headache for several days. You underwent significant testing and were found to have several blood test abnormalities that are sometimes seen with tick-borne illnesses such as Lyme disease and Anaplasmosis. The final testing for these tick-borne illnesses will take several more days to result. All of your lab abnormalities improved well since you were started on IV fluids as well as an IV antibiotic called Doxycycline. Overall, it is most likely that you have a viral illness or a tick-borne illness with associated dehydration that led to all of your symptoms. You will be discharged on 10/18 in improved, stable condition. Please continue to take Doxycycline twice per day for the next 7 days. You will follow up with your PCP within the next week - at that time your final tick- borne illness labs will be back and your doctor can stop the antibiotic early if this testing is normal. As far as your blood pressure, the top number was mostly 150s-160s while you were hospitalized, and this is adequate for your age. You will need to speak with your PCP about the possibility of re-starting blood pressure medications at your next visit. We hope you continue to feel better. Pending Studies at Discharge: Yes Studies:: anaplasma/babesia/ehrlichia PCR - pending Stand-Alone Forms: My [facility], Smoking Cessation Medications and DC Order Prescriptions: New doxycycline hyclate 100 mg capsule 100 mg PO BID 7 Days Qty: 14 RF: 0 Discontinued lisinopril 40 mg tablet 40 mg PO DAILY Qty: 90 RF: 1 Discharge Orders: Discharge Order (Routine); Ordered 10/18/21 Ordered By: El Plunkett Admission Data Admit Date/Time: 10/16/21 21:05 Attending Provider: Perez Flores Admit Provider: Shakira Stapleton Primary Care Provider: Christina Spann Other Providers: Shakira Stapleton Other Interventions: Discharge Summary Assessment (RN) Last Done: 10/18/21 14:23 Supervising Physician Co-Signing Physician Notes Attending attestation Pt seen and examined in concert with Dr. Plunkett. In agreement with the documented findings as noted in the resident documentation with any exceptions or additions as noted here. Resolution of presenting complaint, feeling much better. VS reviewed. On examination, S1/S2 nl RRR no MCG. CTAB. Abd NT/ND BS+ve Weakness/malaise - multiple potential causes as below. PT/OT evaluation recommendations appreciated as above Leukopenia and thrombocytopenia - improving. follow up confirmatory testing for tick borne disease and cultures. Continue doxycycline PO for empiric coverage to be d/c if negative in PCP f/u. KALEB - improved with IVF, encourage PO intake. Elevated BP in the setting of HTN diagnosis - reported dizziness with 40mg dose of lisinopril and was initially HTN on presentation but has been stable off medication during admission. Would restart in PCP evaluation, consider low dose losartan. Hyponatremia - likely hypovolemic - resolved. Else see resident documentation as noted. Total attending physician time spent on this patient's care on the day of discharge: 35 minutes. Resident Activity Tracking Resident Involvement: Resident Care Provided Care Provided: Adult Hospital Medicine
[2021-10-18] MEDS: LACTATED RINGER'S 1,000 ML IV SCH (07:46)
[2021-10-18 08:39] LABS: Hematocrit (blood only) 36.6 % (37-47); Hemoglobin 12.4 g/dL (12.0-16.0); Mean Corpuscular Hgb Conc 33.9 g/dL (32-36); Mean Corpuscular Volume 88.4 fL (80-100); Mean Platelet Volume 11.5 fL (7.4-10.4); Platelet Count 105 K/uL (130-400); RDW Coefficient of Variation 13.9 % (11.5-14.5); RDW Standard Deviation 45.5 fL (36.4-46.3); Red Blood Count 4.14 M/uL (4.2-5.4)
[2021-10-18 08:50] LABS: Albumin Globulin Ratio 1.3 (0.9-2); Albumin Level 3.2 gm/dl (3.4-5.0); BUN Creatinine Ratio 14.2 (10-20); Bilirubin,Total 0.4 mg/dl (0.2-1.0); C Reactive Protein 7.48 mg/dl (0-0.5); Calcium 8.7 mg/dl (8.5-10.1); Creatinine Clr Calc Pharmacy 35.4 ml/min; Est GFR (African American) 50.1 ml/min; Est GFR (Non-African American) 43.3 ml/min; Globulin 2.5 gm/dl (2.5-4.0); Magnesium 1.7 mg/dl (1.7-2.4); Potassium 3.7 mmol/L (3.5-5.1); Total Protein 5.7 gm/dl (6.0-8.3)
[2021-10-18 09:38] LABS: Basophils # (auto) 0.17 K/uL (0-0.2); Basophils % (auto) 2.7 %; Eosinophils # (auto) 0.07 K/uL (0-0.5); Eosinophils % (auto) 1.1 %; Immature Granulocytes # (auto) 0.01 K/uL (0.00-0.02); Immature Granulocytes % (auto) 0.2 %; Lymphocytes # (auto) 2.91 K/uL (1.2-3.4); Lymphocytes % (auto) 45.5 %; Monocytes # (auto) 1.16 K/uL (0.11-0.59); Monocytes % (auto) 18.1 %; Neutrophils # (auto) 2.08 K/uL (1.4-6.5); Neutrophils % (auto) 32.4 %
[2021-10-18] MEDS ORDERED: ACETAMINOPHEN 500 MG TAB PO PRN (09:44)
[2021-10-18] MEDS: DOXYCYCLINE HYCLATE 100 MG in DEXTROSE 5% 100 ML IV SCH (10:22)
[2021-10-19 21:12] LABS: Babesia microti DNA Not Detected (Not Detected)
== END 2021-10-18 16:14 | disposition home or self-care (01) ==
LOC: ED 17:50 → INTOOBSV 21:05 → EDINP 21:05 → SUATTDRO 21:05 → 2N 22:45